=== PATIENT | male | born 1970 ===

== ENCOUNTER 2018-04-20 14:27 | Emergency (ER) | payer OTHER ==
[~2018-04-20] VITALS: Ht 177.8 cm; Wt 90.7 kg
[2018-04-20] MEDS ORDERED: COZAAR100 MG (14:59)
== END 2018-04-20 17:20 | disposition home or self-care (01) ==
LOC: ER 14:27
DX: R07.89 Other chest pain (principal); M60.88 Other myositis, other site

== ENCOUNTER 2020-11-11 11:49 | Outpatient (CLI) | payer OTHER ==
[~2020-11-11 11:49] MED LIST: COZAAR100 MG
== END 2020-11-11 15:00 | disposition home or self-care (01) ==
LOC: LAB 11:49
PROVIDERS: ATTEND Emergency Medicine Pediatric Emergency Medicine
DX: Z03.818 Encounter for observation for suspected exposure to other biological agents ruled out (principal)